=== PATIENT | male | born 1935 | race Caucasian/White ===

== ENCOUNTER 2017-02-18 22:49 | Emergency (ER) | payer BC ==
[~2017-02-18] VITALS: Ht 175.3 cm; Wt 63.5 kg
[2017-02-18 22:49] VITALS: BP_SYST 129
[~2017-02-18 22:49] MED LIST: ASPI81TA2 PO; ATEN-41 PO; DONE10TA44 PO; INSU100V9 SUBCUT; INSU10VI4 SUBCUT; LISI2.5T48 PO; MEMA10TA12 PO; PRAV20TA PO; [UNRECOGNIZED DRUG - OTHER]
[2017-02-18] MEDS ORDERED: NACL 0.9% 1,000 ML IV ONE (23:32)
[2017-02-18 23:56] LABS: BASOPHILS # (AUTO) 0.1 K/uL (0.0-0.2); BASOPHILS % (AUTO) 0.9 % (0.0-2.0); EOSINOPHILS # (AUTO) 0.1 K/uL (0.0-0.4); EOSINOPHILS % (AUTO) 0.5 % (0.0-4.0); HEMATOCRIT 41.8 % (36-54); HEMOGLOBIN 14.1 g/dL (14.0-18.0); LYMPHOCYTES # (AUTO) 0.7 K/uL (1.0-5.5); MEAN CORPUSCULAR HEMOGLOBIN 31 pg (27-31); MEAN CORPUSCULAR HGB CONC 34 % (32-36); MEAN CORPUSCULAR VOLUME 91 fL (79.0-98.0); MONOCYTES # (AUTO) 0.7 K/uL (0.0-1.0); MONOCYTES % (AUTO) 5.5 % (1.7-9.3); NEUTROPHILS # (AUTO) 10.4 K/uL (1.8-7.7); NEUTROPHILS % (AUTO) 87.1 % (40.0-70.0); PLATELET COUNT (AUTO) 168 K/uL (130-430); RED CELL DISTRIBUTION WIDTH 12.6 % (9.0-15.0)
[2017-02-19 00:08] LABS: INR 1.1 (0.80-1.20); PROTHROMBIN TIME 11.4 SECS (9.5-12.5)
[2017-02-19 00:09] LABS: ANION GAP 8 (5-15); CALCIUM 8.9 mg/dL (8.4-11.0); CHLORIDE 107 mmol/L (98-107); CREATININE 1.12 mg/dL (0.55-1.30); GLUCOSE 97 mg/dL (70-99); POTASSIUM 3.4 mmol/L (3.5-5.1); SODIUM SERUM 144 mmol/L (136-145); UREA NITROGEN, BLOOD 18 mg/dL (8-21)
[2017-02-19 00:14] LABS: ALANINE AMINOTRANSFERASE 13 U/L (12-78); ALBUMIN 3.2 g/dL (3.4-4.8); ASPARTATE AMINOTRANSFERASE 5 U/L (10-37); TOTAL BILIRUBIN 0.4 mg/dL (0.0-1.0); TOTAL PROTEIN, SERUM 6.7 g/dL (6.4-8.3)
[2017-02-19 01:07] LABS: BILIRUBIN,URINE NEGATIVE (NEGATIVE); BLOOD, URINE NEGATIVE (NEGATIVE); CLARITY/URINE CLEAR (CLEAR); COLOR,URINE YELLOW (YELLOW); GLUCOSE,URINE NEGATIVE (NEGATIVE); KETONES,URINE NEGATIVE (NEGATIVE); LEUKOCYTE ESTERASE ,URINE NEGATIVE (NEGATIVE); NITRITE, URINE NEGATIVE (NEGATIVE); PH,URINE 5.5 (5.0-8.0); PROTEIN URINE NEGATIVE (NEGATIVE); UROBILINOGEN,URINE 0.2 (0.2-1.0)
[2017-02-19 03:06] VITALS: BP_SYST 144
== END 2017-02-19 03:06 | disposition home or self-care (01) ==
LOC: SED 22:49
DX: E11.649 Type 2 diabetes mellitus with hypoglycemia without coma (principal); F03.90 Unspecified dementia, unspecified severity, without behavioral disturbance, psychotic disturbance, mood disturbance, and anxiety; Z79.84 Long term (current) use of oral hypoglycemic drugs
CPT/HCPCS: 36415; 70450; 80053; 81003; 82962; 85025; 85610; 85730; 96360; 96361; 99285; J7030

== ENCOUNTER 2017-03-29 20:13 | Emergency (ER) | payer BC ==
[~2017-03-29] VITALS: Ht 175.3 cm; Wt 68.0 kg
[2017-03-29 20:25] VITALS: BP_SYST 148
[2017-03-29] MEDS ORDERED: NACL 0.9% 1,000 ML IV ONE (21:00)
[2017-03-29 21:34] LABS: BASOPHILS # (AUTO) 0.1 K/uL (0.0-0.2); BASOPHILS % (AUTO) 1.9 % (0.0-2.0); EOSINOPHILS # (AUTO) 0.5 K/uL (0.0-0.4); EOSINOPHILS % (AUTO) 7.3 % (0.0-4.0); HEMATOCRIT 38.5 % (36-54); LYMPHOCYTES # (AUTO) 1.9 K/uL (1.0-5.5); LYMPHOCYTES % (AUTO) 26.5 % (20.5-51.5); MEAN CORPUSCULAR HEMOGLOBIN 31 pg (27-31); MEAN CORPUSCULAR HGB CONC 34 % (32-36); MEAN CORPUSCULAR VOLUME 92 fL (79.0-98.0); MONOCYTES # (AUTO) 0.6 K/uL (0.0-1.0); MONOCYTES % (AUTO) 8.1 % (1.7-9.3); NEUTROPHILS # (AUTO) 3.9 K/uL (1.8-7.7); NEUTROPHILS % (AUTO) 56.2 % (40.0-70.0); PLATELET COUNT (AUTO) 143 K/uL (130-430); RED BLOOD CELL COUNT(AUTO) 4.19 MIL/uL (4.2-6.2); RED CELL DISTRIBUTION WIDTH 12.7 % (9.0-15.0)
[2017-03-29 21:50] LABS: ANION GAP 7 (5-15); CALCIUM 8.4 mg/dL (8.4-11.0); CHLORIDE 103 mmol/L (98-107); CREATININE 1.41 mg/dL (0.55-1.30); POTASSIUM 4.4 mmol/L (3.5-5.1); SODIUM SERUM 133 mmol/L (136-145); UREA NITROGEN, BLOOD 27 mg/dL (8-21)
[2017-03-29 21:56] LABS: GLUCOSE 477 mg/dL (70-99)
[2017-03-29 21:59] LABS: ALANINE AMINOTRANSFERASE 19 U/L (12-78); ASPARTATE AMINOTRANSFERASE 13 U/L (10-37); TOTAL BILIRUBIN 0.4 mg/dL (0.0-1.0)
[2017-03-29] MEDS ORDERED: NS 500 ML IV ONE (22:45)
[2017-03-29 23:52] VITALS: BP_SYST 143
== END 2017-03-29 23:52 | disposition home or self-care (01) ==
LOC: SED 20:13
DX: E11.65 Type 2 diabetes mellitus with hyperglycemia (principal); F03.90 Unspecified dementia, unspecified severity, without behavioral disturbance, psychotic disturbance, mood disturbance, and anxiety; I10 Essential (primary) hypertension; Z91.14 Patient's other noncompliance with medication regimen; Z79.4 Long term (current) use of insulin
CPT/HCPCS: 36415; 80053; 82962; 85025; 96360; 99284; J7030; J7040

== ENCOUNTER 2017-12-16 19:43 | Emergency (ER) | payer BC ==
[~2017-12-16] VITALS: Ht 172.7 cm; Wt 63.5 kg
[~2017-12-16 19:43] MED LIST changes: +CYAN100067 PO; +HYDR12.55 PO; -INSU10VI4 SUBCUT; -LISI2.5T48 PO; +NPH,100V SUBCUT; +OSEL75CA PO; +VITD2000 PO; -[UNRECOGNIZED DRUG - OTHER]
[2017-12-16 19:45] VITALS: BP_SYST 163
--- NOTE | 2017-12-16 19:45 | NUR ---
Patient to ER via triage for evaluation of being given wrong type of insulin. Patient to bed 6 to await MD evaluation.
--- NOTE | 2017-12-16 19:50 | NUR ---
Patient to ER via triage for evaluation of patient being given wrong type of insulin. Patient received 14 units of regular insulin, instead of 14 units of Lantus. Patient is awake, alert and oriented in no acute distress, vital signs stable, respirations even and unlabored, skin warm and dry to touch. Patient denies pain/sob at present. Patient's bedside glucose was 156, patient given container of OJ while waiting for MD evaluation, will continue to observe and assess.
[2017-12-16 20:08] LABS: EOSINOPHILS # (AUTO) 0.5 K/uL (0.0-0.4); EOSINOPHILS % (AUTO) 6.2 % (0.0-4.0); HEMATOCRIT 40.9 % (36-54); HEMOGLOBIN 13.5 g/dL (14.0-18.0); LYMPHOCYTES # (AUTO) 1.9 K/uL (1.0-5.5); LYMPHOCYTES % (AUTO) 26.3 % (20.5-51.5); MEAN CORPUSCULAR HEMOGLOBIN 31 pg (27-31); MEAN CORPUSCULAR HGB CONC 33 % (32-36); MEAN CORPUSCULAR VOLUME 93 fL (79.0-98.0); MONOCYTES # (AUTO) 0.6 K/uL (0.0-1.0); MONOCYTES % (AUTO) 8.1 % (1.7-9.3); PLATELET COUNT (AUTO) 175 K/uL (130-430); RED BLOOD CELL COUNT(AUTO) 4.39 MIL/uL (4.2-6.2); RED CELL DISTRIBUTION WIDTH 13.5 % (9.0-15.0); WHITE BLOOD COUNT (AUTO) 7.3 K/uL (4.8-10.8)
[2017-12-16 20:10] LABS: BASOPHILS % (AUTO) 0.5 % (0.0-2.0); NEUTROPHILS # (AUTO) 4.3 K/uL (1.8-7.7); NEUTROPHILS % (AUTO) 58.9 % (40.0-70.0)
--- NOTE | 2017-12-16 20:20 | NUR ---
Dr Jett at bedside to evaluate patient.
[2017-12-16 20:27] LABS: ALANINE AMINOTRANSFERASE 18 U/L (12-78); ALBUMIN 3.2 g/dL (3.4-4.8); ANION GAP 4 (5-15); ASPARTATE AMINOTRANSFERASE 13 U/L (10-37); CALCIUM 8.4 mg/dL (8.4-11.0); CHLORIDE 107 mmol/L (98-107); CREATININE 1.05 mg/dL (0.55-1.30); GLUCOSE 164 mg/dL (70-99); POTASSIUM 4.2 mmol/L (3.5-5.1); SODIUM SERUM 139 mmol/L (136-145); TOTAL BILIRUBIN 0.4 mg/dL (0.0-1.0); UREA NITROGEN, BLOOD 21 mg/dL (8-21)
--- NOTE | 2017-12-16 20:50 | NUR ---
Patient given written and verbal discharge instructions and verbalizes understanding. ER MD discussed with patient the results and treatment provided. Patient in stable condition. ID arm band removed. No RX given. Patient educated on pain management and to follow up with PMD. Pain Scale 0. Opportunity for questions provided and answered. Medication side effect fact sheet provided. Patient left ER ambulating without difficulty via walker with at his side. Patient in no acute distress, no questions related to aftercare.
[2017-12-16 20:56] VITALS: BP_SYST 160
== END 2017-12-16 20:56 | disposition home or self-care (01) ==
LOC: SED 19:43
DX: T38.3X1A Poisoning by insulin and oral hypoglycemic [antidiabetic] drugs, accidental (unintentional), initial encounter (principal); G30.9 Alzheimer's disease, unspecified; F02.80 Dementia in other diseases classified elsewhere, unspecified severity, without behavioral disturbance, psychotic disturbance, mood disturbance, and anxiety; I10 Essential (primary) hypertension; E11.9 Type 2 diabetes mellitus without complications; Z79.4 Long term (current) use of insulin; Z79.899 Other long term (current) drug therapy; Z98.52 Vasectomy status; Y92.89 Other specified places as the place of occurrence of the external cause
CPT/HCPCS: 36415; 80053; 85025; 93005; 99285

== ENCOUNTER 2018-06-29 01:37 | Inpatient (IN) | payer BC ==
--- NOTE | 2018-06-28 06:22 | NUR ---
CALLED BACK ; DR MENDEZ CALLED BACK , INFORMED MD THAT PTS 2 ND LACTIC ACID WENT UP TO 3.6 IT WAS 2.4 AT FIRST . ASKED FOR LACTIC ACID ORDER , INFORMED MD THAT SINCE THE 2 ND LA WENT UP PER LAST STAFF MEETING WE NEED TO REPEAT 2 SETS OF THE LACTIC ACID AGAIN , MD STATED TO DO PER SEPSIS PROTOCOL , ALSO NOTIFIED MD THAT PT IS VERY AGITATED , GETTING OUT OF BED AND SCREAMING , MD ORDERED TO GIVE HALDOL 2 MG IVP X 1 NOW , CHANGE PT TO TELEMETRY AND KEEP SITTER AT BEDSIDE .WILL ORDER ENTER . Addendum: 06/29/18 at 0751 by Esther Robins RN CORRECTION : WRONG DATE
[~2018-06-29] VITALS: Ht 175.3 cm; Wt 72.4 kg
[2018-06-29] VITALS (8 sets, daily range): BP systolic 133–187
[~2018-06-29 01:37] MED LIST changes: +ASPI-1155 PO; -ASPI81TA2 PO; +CYAN100010 PO; -CYAN100067 PO; +MEMA10TA PO; -MEMA10TA12 PO
--- NOTE | 2018-06-29 01:40 | NUR ---
Placed in room 1. Placed on laboratory monitor, blood pressure machine and pulse oximeter. To gown for exam. Side rails up. Report given to LAWRENCE Ramos.
--- NOTE | 2018-06-29 01:50 | NUR ---
Pt brought in by ambulance C/O fever x 2 days. Pt states he "hasn't been feeling to good" and called 911 at home. Pt denies any chest pain, shortness of breath, ALOC, nausea or vomiting at this time. Upon arrival pt's temperature was 100.4 and blood sugar 413. Pt is resting in bed, will continue to monitor.
--- NOTE | 2018-06-29 01:55 | NUR ---
ER Dr. Ann at bedside examining patient.
[2018-06-29] MEDS ORDERED: NACL 0.9% 1,000 ML IV ONE ×2 (02:00→03:15)
[2018-06-29] MEDS ORDERED: ACETAMINOPHEN 325 MG TABLET PO ONE (02:00)
[2018-06-29 02:09] LABS: BASOPHILS # (AUTO) 0.4 K/uL (0.0-0.2); BASOPHILS % (AUTO) 2.3 % (0.0-2.0); EOSINOPHILS % (AUTO) 0.2 % (0.0-4.0); HEMATOCRIT 44.9 % (36-54); HEMOGLOBIN 14.3 g/dL (14.0-18.0); LYMPHOCYTES # (AUTO) 0.6 K/uL (1.0-5.5); LYMPHOCYTES % (AUTO) 3.7 % (20.5-51.5); MEAN CORPUSCULAR HEMOGLOBIN 30 pg (27-31); MEAN CORPUSCULAR HGB CONC 32 % (32-36); MEAN CORPUSCULAR VOLUME 94 fL (79.0-98.0); MONOCYTES # (AUTO) 0.4 K/uL (0.0-1.0); MONOCYTES % (AUTO) 2.7 % (1.7-9.3); NEUTROPHILS # (AUTO) 14.2 K/uL (1.8-7.7); NEUTROPHILS % (AUTO) 91.1 % (40.0-70.0); PLATELET COUNT (AUTO) 189 K/uL (130-430); RED BLOOD CELL COUNT(AUTO) 4.79 MIL/uL (4.2-6.2); RED CELL DISTRIBUTION WIDTH 12.8 % (9.0-15.0); WHITE BLOOD COUNT (AUTO) 15.6 K/uL (4.8-10.8)
--- NOTE | 2018-06-29 02:10 | NUR ---
Dr. Ann at bedside speaking to daughter.
--- NOTE | 2018-06-29 02:13 | NUR ---
[facility]
--- NOTE | 2018-06-29 02:28 | NUR ---
Medication reconciliation NOT completed. Pt's daughter states she does not have a list of her fathers medication but can get it in the morning. Pt can not recall the medications he currently takes.
[2018-06-29] MEDS ORDERED: cefTRIAXone 1 GM IVPB PREMIX 50 ML IV ONE (02:30)
[2018-06-29 02:32] LABS: ALANINE AMINOTRANSFERASE 15 U/L (12-78); ALBUMIN 2.7 g/dL (3.4-4.8); ANION GAP 9 (5-15); ASPARTATE AMINOTRANSFERASE 14 U/L (10-37); CALCIUM 8.3 mg/dL (8.4-11.0); CHLORIDE 103 mmol/L (98-107); CREATININE 1.12 mg/dL (0.55-1.30); POTASSIUM 4.6 mmol/L (3.5-5.1); SODIUM SERUM 136 mmol/L (136-145); TOTAL BILIRUBIN 0.6 mg/dL (0.0-1.0); UREA NITROGEN, BLOOD 13 mg/dL (8-21)
[2018-06-29 02:33] LABS: GLUCOSE 418 mg/dL (70-99)
[2018-06-29] MEDS ORDERED: INSULIN REGULAR, HUMAN 10 UNITS/0.1 ML INJ IVP ONE (02:45)
--- NOTE | 2018-06-29 02:48 | NUR ---
Pt is resting quietly in bed, no acute distress noted at this time. Will continue to monitor.
--- NOTE | 2018-06-29 02:53 | NUR ---
Patient meets Severe sepsis risk. Dr. Ann notified. Orders received for Blood cultures x 2, lactic acid x 2 and Rocephin 1 gm IVPB. Sepsis protocol initiated. Addendum: 06/29/18 at 0258 by [email or web address] Vancomycin 1 gm ivpb ordered as well.
[2018-06-29] MEDS ORDERED: VANCOMYCIN HCL 1,000 MG in NS 250 ML IV ONE (03:00)
[2018-06-29] MEDS ORDERED: VANCOMYCIN HCL 1000 MG/VIAL IV ONE (03:08)
--- NOTE | 2018-06-29 03:15 | NUR ---
Straight Cath was attempted for urine specimen collection but was unsucessful.
[2018-06-29] MEDS ORDERED: LIDOCAINE JELLY 5 ML TUBE MM ONE (03:30)
--- NOTE | 2018-06-29 03:30 | NUR ---
Pt is resting in bed, no acute distress noted at this time.
--- NOTE | 2018-06-29 03:40 | NUR ---
# 14 FR In and Out coude catheter with use of sterile technique. Immediate return of 100 ml clear yellow urine noted. Urine sample collected and sent to lab. Pt tolerated procedure well. Patient unable to toilet self.
[2018-06-29 04:05] LABS: BILIRUBIN,URINE NEGATIVE (NEGATIVE); BLOOD, URINE NEGATIVE (NEGATIVE); CLARITY/URINE CLEAR (CLEAR); COLOR,URINE YELLOW (YELLOW); GLUCOSE,URINE 3+ (NEGATIVE); KETONES,URINE TRACE (NEGATIVE); LEUKOCYTE ESTERASE ,URINE NEGATIVE (NEGATIVE); NITRITE, URINE POSITIVE (NEGATIVE); PROTEIN URINE NEGATIVE (NEGATIVE); UROBILINOGEN,URINE 0.2 (0.2-1.0)
--- NOTE | 2018-06-29 04:29 | NUR ---
Pt's daughter Makayla left contact information for any updates or change of condition Makayla Chen [phone]
--- NOTE | 2018-06-29 04:32 | NUR ---
Patient will be admitted to care of Dr. Magana. Admitted to Med Surg unit. Will go to room 112 B. Belongings list completed. Summary report printed. Report will be given at bedside.
--- NOTE | 2018-06-29 04:32 | NUR ---
Transfer to Med Surg. Licensed nurse present. IV present no signs or symptoms of infiltration.
--- NOTE | 2018-06-29 04:35 | NUR ---
ADMISSION: The patient, PEÑA GUZMAN, 83 y/o, M admitted by WESTLEY MENDEZ MD, WITH THE DIAGNOSIS OF SEPSIS TO ROOM 112 B ,was given written information regarding hospital policies, unit procedures and contact persons.
[2018-06-29 04:40] LABS: BACTERIA,URINE MANY /HPF (None Seen); RBC,URINE 0-3 /HPF (0-3)
--- NOTE | 2018-06-29 04:40 | NUR ---
INITIAL NOTES: PT IS AWAKE , ALERT AND NOTICED GETTING CONFUSED OR FORGETFUL (ASKING QUESTIONS REPEATEDLY), ALSO SAYING " I WANT TO GO HOME " . PT HAS IV TO THE LEFT FA 20 G, IV FLUID BOLUS STARTED IN ER AND VANCOMYCIN IS INFUSING WELL . NO S/S OF INFILTRATION NOTED , ASSESSMENT DONE ; NOTICED THAT 2 ND LACTIC ACID IS HIGHER THAN THE 1 ST ONE . PER ER REPORT MD IS AWARE . PT RECEIVED 2 L BOLUS IN ER . ALSO RECEIVED VANCOMYCIN AND ROCEPHIN IN ER , PTS VITALS ARE STABLE , EXCEPT HR IS ABOVE 90 ; BED IN LOW AND LOCK POSIITON , CALL ESCOTO IN REACH , BED ALARM IS ON ; WILL CONTINUE TO MONITOR PT .ALSO PER PIPING ENGINEER MD WANTS TO ADMIT THE PT IN MED SURG NOT TELE .
--- NOTE | 2018-06-29 04:56 | NUR ---
Note ernesto in EDM - 06/29/18 at 0639 by [email or web address] Patient will be admitted to care of Dr. Magana. Admitted to med surge unit. Will go to room 112B. Belongings list completed. Summary report printed. Report will be given at bedside.
[2018-06-29] MEDS: NACL 0.9% 1,000 ML IV SCH ×2 (05:27→17:15)
--- NOTE | 2018-06-29 05:30 | NUR ---
RN NOTES: PT IS AWAKE , CONTINUOUSLY SAYING THAT HE WANTS TO GO HOME NOW . PT IS INCONTINENT WITH URINE , PT CLEANED , LINEN AND GOWN CHANGED ; VANCOMYCIN IS STILL INFUSING ;WILL CONTINUE TO MONITOR PT . Addendum: 06/29/18 at 0742 by Esther Robins RN PICTURES OF THE LEFT KNEE AND LEFT HIP TAKEN
--- NOTE | 2018-06-29 06:00 | NUR ---
FAMILY CALLED: LAUREN CALLED AND INFORMED THAT PT IS VERY AGITATED , GETTING OUT OF BED AND SHOUTING AND SAYING THAT HE WANTS TO GO HOME NOW . SECURITY CALLED , HE IS AT BEDSIDE .
--- NOTE | 2018-06-29 06:15 | NUR ---
PAGED: DR MENEDZ PAGED TO GET LACTIC ACID ORDER AND INFORM HIM THAT PT IS VERY CONFUSED .
--- NOTE | 2018-06-29 06:16 | NUR ---
ATTENDING MD DR MENDEZ WAS CALLED RE: REPORT A HIGHER LACTIC ACID LEVEL AND ASK FOR ANOTHER ORDER OF THE SAME TEST. SPOKE TO RAMÓN.
--- NOTE | 2018-06-29 06:22 | NUR ---
CALLED BACK ; DR MENDEZ CALLED BACK , INFORMED MD THAT PTS 2 ND LACTIC ACID WENT UP TO 3.6 IT WAS 2.4 AT FIRST . ASKED FOR LACTIC ACID ORDER , INFORMED MD THAT SINCE THE 2 ND LA WENT UP PER LAST STAFF MEETING WE NEED TO REPEAT 2 SETS OF THE LACTIC ACID AGAIN , MD STATED TO DO PER SEPSIS PROTOCOL , ALSO NOTIFIED MD THAT PT IS VERY AGITATED , GETTING OUT OF BED AND SCREAMING , MD ORDERED TO GIVE HALDOL 2 MG IVP X 1 NOW , CHANGE PT TO TELEMETRY AND KEEP SITTER AT BEDSIDE .WILL ORDER ENTER .
--- NOTE | 2018-06-29 06:25 | NUR ---
LAB NOTIFIED : LAB NOTIFIED ABOUT THE NEW ORDER FOR REPEATED LACTIC ACID .
[2018-06-29] MEDS ORDERED: HALOPERIDOL LACTATE 5 MG/ML VIAL IVP ONE (06:30)
--- NOTE | 2018-06-29 06:37 | NUR ---
RN NOTES: PLACED PT ON TELEMONITOR . PT IS VERY CONFUSED , AND AGITATED , SECURITY AT BEDSIDE . HALDOL 2 MG GIVEN IV PER DR MENDEZ ORDER . WILL CONTINUE TO MONITOR PT .
[2018-06-29] MEDS: INSULIN REGULAR, HUMAN 100 UNITS/ML, 10 ML VIAL (novoLIN R) SUBCUT PRN ×4 (06:50→20:55)
--- NOTE | 2018-06-29 06:55 | NUR ---
BS: BS 276, 6 UNITS OF INSULIN GIVEN PER ORDER . WILL CONTINUE TO MONITOR .SITTER AT BEDSIDE .
--- NOTE | 2018-06-29 07:10 | NUR ---
CLOSING NOTES: REPORT GIVEN TO RN AT BEDSIDE . PT IS MORE CALM . SITTER AT BEDSIDE .
--- NOTE | 2018-06-29 08:05 | NUR ---
INITIAL ROUNDS Received pt AAOx2, pt confused at times, pt still restless and anxious-sitter at bedside, no s/s resp distress. No c/o pain or discomfort. Plan of care for the day reviewed with pt-pt verbalized his understanding. IVF infusing well to LFA at ordered rate with no s/s infiltration to site. Pain management, disease process, skin and safety discussed-teach back done. Call light within reach.
[2018-06-29] MEDS ORDERED: INSULIN NPH 100 UNITS/ML 10 ML VIAL SUBCUT SCH (09:45)
--- NOTE | 2018-06-29 10:20 | NUR ---
ROUNDS Pt resting quietly in bed with no s/s resp distress, no c/o pain or discomfort. Sitter remains at bedside.
--- NOTE | 2018-06-29 10:54 | NUR ---
Nutrition Update Valentin Scale 16 noted. Pt admitted for sepsis. Diet: [facility] BMI: 23.6 kg/m2 RD to follow per nutrition care standards.
[2018-06-29] MEDS: PIPERACILLIN/TAZO 3.375/DEX-IS 50 ML IV SCH ×4 (11:21→23:50)
--- NOTE | 2018-06-29 12:25 | NUR ---
ROUNDS Pt sitting up in bed with no s/s resp distress, no c/o pain or discomfort. Fingerstick done and Insulin given as ordered-see EMAR. Sitter remains at bedside.
--- NOTE | 2018-06-29 14:10 | NUR ---
ROUNDS Pt resting quietly in bed with no s/s resp distress, no c/o pain or discomfort. No changes, call light within reach. Sitter remains at bedside for safety.
--- NOTE | 2018-06-29 16:20 | NUR ---
ROUNDS Pt resting quietly with no c/o pain or discomfort, afebrile. Sitter at bedside for safety.
--- NOTE | 2018-06-29 18:48 | NUR ---
CLOSING NOTE Pt sitting up in bed with no s/s resp distress, afebrile, no c/o pain or discomfort. Pt less restless and anxious, sitter remains at bedside for safety. Call light within reach.
--- NOTE | 2018-06-29 19:59 | NUR ---
OPENING NOTES Pt and endorsement received from day shift nurse. Pt is awake, alert and lying in bed. Sitter Soledad at bedside. Pt on IVF NS at 100ml/hr infusing well on left forearm G20. No complains of pain at this time. No sign of acute distress noted. Call light with pt, bed alarm on and at its lowest level. Will continue to monitor.
[2018-06-29] MEDS: MEMANTINE HCL 5 MG TABLET PO SCH (20:45)
[2018-06-29] MEDS: SIMVASTATIN 10 MG TABLET PO SCH (20:45)
[2018-06-29] MEDS: DONEPEZIL HCL 5 MG TABLET (ARICEPT) PO SCH (20:46)
[2018-06-29] MEDS ORDERED: PRAVASTATIN SODIUM 20 MG TABLET (PRAVACHOL) PO SCH (21:00)
[2018-06-29] MEDS ORDERED: INSULIN GLARGINE 100 UNITS/ML 10 ML VIAL SUBCUT SCH (21:00)
--- NOTE | 2018-06-29 21:49 | NUR ---
PATIENT REMAINE CALM @COOPERATE SINCE MY SHIFT STARTED AT 1800 HE COMMUNICATE VERY WELL HE TALKED ALOTS ABOUT HIS JOB HOW HE EARNED HIS LEAVING AND HOW MUCH HE ENJOYED PATIENT IS VERY ALERT AND AWARE WHERE HIS AT
--- NOTE | 2018-06-29 23:48 | NUR ---
PATIENT STAYED AWAKE NEVER GO TO SLEEP PATIENT GETTING CONFUSE AND REPEATED ASKING THE SAME GUESTION ALL OVER @ AND OVER HE BECAME AGGRESIVE AND COMBATIVE TRIED TO HIT THE NURSE
--- NOTE | 2018-06-30 00:31 | NUR ---
REFUSED BP MEDICATION Pt states he wants to go home. BP was 187/80. Pt refused to take BP medication, Clonidine 0.1mg despite educating him on about Clonidine to lower his bp. Will try to convince again later.
[2018-06-30 01:46] VITALS: BP_SYST 149
--- NOTE | 2018-06-30 01:46 | NUR ---
BP RECHECKED Pt's BP was rechecked and is 149/75mmHg. Pt is not agitated at this time. No signs of acute distress or SOB noted. No complains of pain or discomfort. Safety precautions in place, sitter JORGE Rowe at bedside and call light with pt. Will continue to monitor.
[2018-06-30] MEDS: NACL 0.9% 1,000 ML IV SCH ×3 (02:08→21:46)
--- NOTE | 2018-06-30 04:00 | NUR ---
RESTING Pt is resting with both eyes closed. With visible chest rise and fall with non-labored breathing noted. No complains at this time and no signs of acute distress noted. Sitter JORGE Rowe at bedside, safety precautions in place and call light with pt. Will continue to monitor.
[2018-06-30] MEDS: PIPERACILLIN/TAZO 3.375/DEX-IS 50 ML IV SCH ×4 (05:15→23:12)
[2018-06-30] MEDS: INSULIN REGULAR, HUMAN 100 UNITS/ML, 10 ML VIAL (novoLIN R) SUBCUT PRN ×4 (06:21→21:01)
--- NOTE | 2018-06-30 06:58 | NUR ---
CLOSING NOTES Pt is resting with both eyes closed. With visible chest rise and fall with non-labored breathing noted. No signs of acute distress noted. All needs attended throughout the shift. Safety precautions maintained and call light with pt. Will endorse to day shift nurse.
--- NOTE | 2018-06-30 07:35 | NUR ---
received endorsement from madhuri zarate. aaox 3. confused at times. will continue to monitor patient status. no agitation noted. respiration is even and unlabored. no oxygen noted. has iv access on the left forearm #20 with IV fluids of Normal Saline at 60cc/hr infusing on well.
--- NOTE | 2018-06-30 08:20 | NUR ---
assist patient for breakfast. able to eat without difficulty. hob elevated.
[2018-06-30 08:22] VITALS: BP_SYST 157
--- NOTE | 2018-06-30 08:33 | NUR ---
dr wolfe here, informed md that bp was 157/101 but bp med ordered above 160. md said he will make adjustments.
--- NOTE | 2018-06-30 09:00 | NUR ---
medication given as ordered clonidine 0.1 mg tablet and namenda given as ordered. bp 157/100.
[2018-06-30] MEDS: MEMANTINE HCL 5 MG TABLET PO SCH ×2 (09:26→20:46)
[2018-06-30] MEDS: cloNIDine HCL 0.1 MG TABLET PO PRN (09:27)
--- NOTE | 2018-06-30 09:30 | NUR ---
ABLE TO TAKE MEDICATION NO DIFFICULTY. PATIENT IS QUITE. NO AGITATION NOTED. RESTING AT THIS TIME.
[2018-06-30] MEDS ORDERED: OSELTAMIVIR PHOSPHATE 75 MG CAPSULE PO ONE (09:45)
[2018-06-30] MEDS ORDERED: ATENOLOL 25 MG TABLET(TENORMIN) PO ONE (09:45)
[2018-06-30] MEDS ORDERED: ASPIRIN 81 MG TAB.CHEW PO ONE (09:45)
[2018-06-30] MEDS ORDERED: CHOLECALCIFEROL (VITAMIN D3) 2,000 UNIT TABLET PO ONE (09:45)
[2018-06-30] MEDS ORDERED: CYANOCOBALAMIN 1000 mCg TABLET PO ONE (09:45)
--- NOTE | 2018-06-30 10:30 | NUR ---
bp is 140/74. no pain noted
--- NOTE | 2018-06-30 10:41 | NUR ---
PT'S DAUGHTER NEETA UPDATED WITH PT'S STATUS.
[2018-06-30 12:00] VITALS: BP_SYST 130
[2018-06-30 12:25] VITALS: BP_SYST 118
--- NOTE | 2018-06-30 15:00 | NUR ---
other medication ordered given at this time. made comfortable
[2018-06-30 16:54] VITALS: BP_SYST 119
--- NOTE | 2018-06-30 17:08 | NUR ---
patient is stable. quite no agitation noted. continue to monitor patients status
--- NOTE | 2018-06-30 18:10 | NUR ---
latest bs is 322 mg/dl. coverage given at this time. at the bedside.
--- NOTE | 2018-06-30 18:46 | NUR ---
at the bedside. assisting to eat at the bedside. monitor patients status
--- NOTE | 2018-06-30 19:25 | NUR ---
CHANGE OF SHIFT: pt. awake, alert but disoriented, calm watching tv with at bedside. denies any discomfort at this time, side rails up, bed alarm turn on. IVF infusing on left forearm. call light within reach, pt. near nurses station.in no acute distress.
[2018-06-30 20:00] VITALS: BP_SYST 147
[2018-06-30] MEDS: SIMVASTATIN 10 MG TABLET PO SCH (20:46)
[2018-06-30] MEDS: DONEPEZIL HCL 5 MG TABLET (ARICEPT) PO SCH (20:46)
--- NOTE | 2018-06-30 21:00 | NUR ---
NOTES asked despatch clerk to call Dr. Dempsey to verify order of Levemir.
[2018-06-30] MEDS: OSELTAMIVIR PHOSPHATE 75 MG CAPSULE PO SCH (21:01)
--- NOTE | 2018-06-30 21:30 | NUR ---
NOTES: Dr. Dempsey Called back and change dose of Levemir.
--- NOTE | 2018-06-30 22:01 | NUR ---
NOTES: pt. incontinent of urine, asked NEWS LIBRARIAN to change , kept warm and dry.
--- NOTE | 2018-06-30 23:30 | NUR ---
NOTES: offered something to eat but refused. dozing on and off.
--- NOTE | 2018-06-30 23:31 | NUR ---
NOTES: pt. been dozing off, remain at bedside waiting for her ride. due Levemir given.
--- NOTE | 2018-07-01 00:30 | NUR ---
NOTES; pt. sleeping when checked. risk for falls. bed alarm on, side rails up.
--- NOTE | 2018-07-01 03:17 | NUR ---
NOTES: pt. sleeping when made rounds.condition observed.
[2018-07-01 03:33] VITALS: BP_SYST 172
[2018-07-01] MEDS: cloNIDine HCL 0.1 MG TABLET PO PRN ×2 (03:51→08:33)
[2018-07-01] MEDS: PIPERACILLIN/TAZO 3.375/DEX-IS 50 ML IV SCH ×2 (05:20→11:33)
--- NOTE | 2018-07-01 06:00 | NUR ---
NOTES: pt. sleeping, no complaints noted.
--- NOTE | 2018-07-01 06:45 | NUR ---
NOTES: pt. awakened to check BS 44, pt. awake and responsive. gave apple juice .
--- NOTE | 2018-07-01 07:00 | NUR ---
NOTES: hypoglycemia protocol , gave D 50 IVP, will recheck BS in 15 min. IVF patent.
[2018-07-01] MEDS ORDERED: DEXTROSE 50% JECT 50 ML DISP.SYRIN ONE (07:04)
--- NOTE | 2018-07-01 07:18 | NUR ---
NOTES: rechecked blood sugar 178. pt. resting and awake.
--- NOTE | 2018-07-01 07:52 | NUR ---
endorsed pt. to incoming shift with nurse Rolon.
[2018-07-01 08:00] VITALS: BP_SYST 163
--- NOTE | 2018-07-01 08:00 | NUR ---
RN OPENING NOTE PATIENT RESTING ON BED, ALERT ORIENTED X3. PATIENT WAS ASSESSED, VITAL SIGNS SHOW BLOOD PRESSURE OF 163/81 PATIENT WILL BE GETTING HIS BLOOD PRESSURE MEDICATION SOON, PATIENT IVF IS RUNNING PRESCRIBED, BED AT LOW POSITION AND CALL LIGHT WITHIN REACH, WILL CONTINUE TO MONITOR.
[2018-07-01 08:01] LABS: BASOPHILS % (AUTO) 0.5 % (0.0-2.0); EOSINOPHILS # (AUTO) 0.6 K/uL (0.0-0.4); EOSINOPHILS % (AUTO) 7.1 % (0.0-4.0); HEMATOCRIT 37.1 % (36-54); LYMPHOCYTES # (AUTO) 1.7 K/uL (1.0-5.5); LYMPHOCYTES % (AUTO) 19.3 % (20.5-51.5); MEAN CORPUSCULAR HEMOGLOBIN 32 pg (27-31); MEAN CORPUSCULAR HGB CONC 35 % (32-36); MEAN CORPUSCULAR VOLUME 93 fL (79.0-98.0); MONOCYTES # (AUTO) 0.5 K/uL (0.0-1.0); MONOCYTES % (AUTO) 6.3 % (1.7-9.3); NEUTROPHILS # (AUTO) 5.8 K/uL (1.8-7.7); PLATELET COUNT (AUTO) 127 K/uL (130-430); RED BLOOD CELL COUNT(AUTO) 4.01 MIL/uL (4.2-6.2); RED CELL DISTRIBUTION WIDTH 12.7 % (9.0-15.0); WHITE BLOOD COUNT (AUTO) 8.6 K/uL (4.8-10.8)
[2018-07-01] MEDS: NACL 0.9% 1,000 ML IV SCH (08:16)
[2018-07-01 08:26] LABS: ALANINE AMINOTRANSFERASE 15 U/L (12-78); ALBUMIN 2.3 g/dL (3.4-4.8); ANION GAP 5 (5-15); ASPARTATE AMINOTRANSFERASE 15 U/L (10-37); CALCIUM 8.6 mg/dL (8.4-11.0); CHLORIDE 112 mmol/L (98-107); CREATININE 0.92 mg/dL (0.55-1.30); POTASSIUM 3.9 mmol/L (3.5-5.1); SODIUM SERUM 143 mmol/L (136-145); TOTAL BILIRUBIN 0.6 mg/dL (0.0-1.0); UREA NITROGEN, BLOOD 11 mg/dL (8-21)
[2018-07-01] MEDS: MEMANTINE HCL 5 MG TABLET PO SCH (08:30)
[2018-07-01] MEDS: OSELTAMIVIR PHOSPHATE 75 MG CAPSULE PO SCH (08:32)
[2018-07-01 08:40] LABS: GLUCOSE 41 mg/dL (70-99)
--- NOTE | 2018-07-01 08:40 | NUR ---
RN NOTE LAB CALLED A CRITICAL VALUE TO BLOOD SUGAR OF 40 MG/DL MEASURED AT 0500. THAT THE PREVIOUS SHIFT TOLD ME THEY ALREADY CALLED DR. CORTES AND INFORMED HIM AND PATIENT GOT D50 IV. PATIENT'S BLOOD SUGAR WAS MEASURED RIGHT NOW AND CAME UP TO BE 180 MG/DL. WILL NOT CALL THE SINCE HE WAS CALLED BEFORE FOR THE SAME RESULT. WILL CONTINUE TO FOLLOW UP.
[2018-07-01] MEDS ORDERED: CHOLECALCIFEROL (VITAMIN D3) 2,000 UNIT TABLET PO SCH (09:00)
[2018-07-01] MEDS ORDERED: ASPIRIN 81 MG TAB.CHEW PO SCH (09:00)
[2018-07-01] MEDS ORDERED: ATENOLOL 25 MG TABLET(TENORMIN) PO SCH (09:00)
[2018-07-01] MEDS ORDERED: CYANOCOBALAMIN 1000 mCg TABLET PO SCH (09:00)
[2018-07-01] MEDS ORDERED: LEVO250T2 PO (10:20)
[2018-07-01] MEDS ORDERED: LACT1CAP72 PO (10:21)
--- NOTE | 2018-07-01 10:38 | NUR ---
[facility] PLAN/SNF SNF AVAILABILITY: [facility] - ROOM [address] [place] [address] PHONE: [phone] (NURSE TO CALL FOR REPORT) TRANSPORTATION: [facility] WILL TRANSFORMER BUILDER AT 2PM PHONE: [phone] LAUREN MADE AWARE OF TRANSFER ARRANGEMENT AND NO ISSUES. SHAMA CORDON, HCP DIRECT SUPPORT [facility] [phone]
--- NOTE | 2018-07-01 12:00 | NUR ---
RN NOTE PATIENT IS RESTING ON BED, PATIENT BLOOD SUGAR WAS MEASURED TO BE 280 MG/DL. PATIENT GOT 6 UNITS OF REGULAR INSULIN PER THE SLIDING SCALE. PATIENT DENIES PAIN OR DISCOMFORT, PATIENT WILL BE TRANSFERED TO [facility], PATIENT WAS TOLD AND HIS LAUREN WAS INFORMED. SHE AGREED TO THE TRANSFER. A REPORT WAS GIVEN TO LILLIANA TORREZ AT [facility]. AMBULANCE WILL BE COMING TO PICK THE PATIENT UP AT 1400.
[2018-07-01 12:02] VITALS: BP_SYST 158
[2018-07-01] MEDS: INSULIN REGULAR, HUMAN 100 UNITS/ML, 10 ML VIAL (novoLIN R) SUBCUT PRN (12:07)
[2018-07-01 12:15] LABS: NEUTROPHILS % (AUTO) 66.8 % (40.0-70.0)
[2018-07-01 12:48] VITALS: BP_SYST 158
--- NOTE | 2018-07-01 13:33 | NUR ---
HCP OIL TESTER WEEKEND SOLAR SYSTEM INSTALLER, NI CORDON WAS CALLED RE: INFORM THAT DAUGHTER DOES NOT LIKE [facility]. LEFT CM PHYSICIAN COMPENSATION ANALYST A VOICE MESSAGE
--- NOTE | 2018-07-01 13:35 | NUR ---
HCP SHAMA CORRAL CALLED BACK TO INFORM THAT SHE TALKED TO THE DAUGHTER, ASHLEE WHO AGREED TO [facility].
--- NOTE | 2018-07-01 14:30 | NUR ---
RN CLOSING NOTE PATIENT WILL BE TRANSFERED TO [facility] WITH A BLS AMBULANCE, PATIENT SIGNED HIS AGREEMENT FOR TRANSPORTATION, LAUREN AGREED. PATIENT SALINE LOCK WAS REMOVED. MEDICATIONS AND OTHER DISCHARGE PAPERS WERE SHOWN TO THE PATIENT AND THE EMT. REPORT WAS GIVEN TO THE RECEIVING NURSE IN [facility], AND i HERE BY SIGN OFF PATIENTS' CARE.
--- NOTE | 2018-07-02 10:30 | NUR ---
Discharge Planning: DORA received a message from patients daughter Marilyn ([phone]) stating she would like her father transferred to [facility], he has been there in the past. DCP spoke to Marilyn and patient was transferred to [facility], Marilyn was happy with choice she visiting and dad doing great.
== END 2018-07-01 14:35 | DRG 871 ==
LOC: SED 01:37 → SMU 04:10 → STU 06:00 → SMU 06:30 → STU 17:16 → SIC 06-30 02:47 → STU 06-30 03:54
PROVIDERS: ADMIT Internal Medicine Hospice and Palliative Medicine; ATTEND Internal Medicine Hospice and Palliative Medicine
DX: A41.9 Sepsis, unspecified organism (principal); G93.41 Metabolic encephalopathy; N39.0 Urinary tract infection, site not specified; E44.1 Mild protein-calorie malnutrition; E11.649 Type 2 diabetes mellitus with hypoglycemia without coma; R45.1 Restlessness and agitation; M19.011 Primary osteoarthritis, right shoulder; E78.5 Hyperlipidemia, unspecified; G30.9 Alzheimer's disease, unspecified; F02.80 Dementia in other diseases classified elsewhere, unspecified severity, without behavioral disturbance, psychotic disturbance, mood disturbance, and anxiety; M19.90 Unspecified osteoarthritis, unspecified site; I10 Essential (primary) hypertension; Z85.46 Personal history of malignant neoplasm of prostate; Z90.79 Acquired absence of other genital organ(s); Z79.899 Other long term (current) drug therapy; Z79.82 Long term (current) use of aspirin
CPT/HCPCS: 36415; 71045; 80053; 81000-TC; 82962; 83036; 83605; 84484; 85025; 86710; 87040-TC; 87086; 96361; 96365; 96366; 96367; 97110-GP; 99285; G0378; G9035; J0696; J1630; J1815; J2543; J3370; J7030

== ENCOUNTER 2018-09-30 14:10 | Inpatient (IN) | payer BC ==
[~2018-09-30] VITALS: Ht 175.3 cm; Wt 72.1 kg
[~2018-09-30 14:10] MED LIST changes: +LACT1CAP72 PO; +LEVO250T2 PO
[2018-09-30 14:15] VITALS: BP_SYST 120
[2018-09-30] MEDS ORDERED: ONDANSETRON HCL 4 MG/2 ML VIAL IVP ONE (14:30)
[2018-09-30] MEDS ORDERED: ASPIRIN 81 MG TAB.CHEW PO ONE (14:30)
[2018-09-30 15:28] LABS: ANION GAP 6 (5-15); CALCIUM 8.8 mg/dL (8.4-11.0); CHLORIDE 106 mmol/L (98-107); CREATININE 0.94 mg/dL (0.55-1.30); GLUCOSE 91 mg/dL (70-99); HEMATOCRIT 43.2 % (36-54); HEMOGLOBIN 14.2 g/dL (14.0-18.0); MEAN CORPUSCULAR HEMOGLOBIN 31 pg (27-31); MEAN CORPUSCULAR VOLUME 95 fL (79.0-98.0); POTASSIUM 3.7 mmol/L (3.5-5.1); RED BLOOD CELL COUNT(AUTO) 4.54 MIL/uL (4.2-6.2); SODIUM SERUM 137 mmol/L (136-145); UREA NITROGEN, BLOOD 14 mg/dL (8-21); WHITE BLOOD COUNT (AUTO) 8.2 K/uL (4.8-10.8)
[2018-09-30 15:29] LABS: BASOPHILS % (AUTO) 0.4 % (0.0-2.0); EOSINOPHILS # (AUTO) 0.4 K/uL (0.0-0.4); EOSINOPHILS % (AUTO) 4.9 % (0.0-4.0); LYMPHOCYTES # (AUTO) 1.9 K/uL (1.0-5.5); LYMPHOCYTES % (AUTO) 23.1 % (20.5-51.5); MEAN CORPUSCULAR HGB CONC 33 % (32-36); MONOCYTES # (AUTO) 0.6 K/uL (0.0-1.0); MONOCYTES % (AUTO) 7.6 % (1.7-9.3); NEUTROPHILS # (AUTO) 5.3 K/uL (1.8-7.7); PLATELET COUNT (AUTO) 188 K/uL (130-430); PROTHROMBIN TIME 10.7 SECS (9.5-12.5); RED CELL DISTRIBUTION WIDTH 13.4 % (9.0-15.0)
[2018-09-30 15:32] LABS: ALANINE AMINOTRANSFERASE 17 U/L (12-78); AMYLASE 60 U/L (0-100); ASPARTATE AMINOTRANSFERASE 16 U/L (10-37); LIPASE 79 U/L (73-393); TOTAL BILIRUBIN 0.5 mg/dL (0.0-1.0)
[2018-09-30 15:34] LABS: ALCOHOL, BLOOD < 3 mg/dL (<10)
[2018-09-30] MEDS ORDERED: INSU100V9 SQ (16:14)
[2018-09-30] MEDS ORDERED: INSU100V7 SQ (16:14)
[2018-09-30] MEDS ORDERED: PRAV20TA PO (16:14)
[2018-09-30] MEDS ORDERED: ATEN-41 PO (16:14)
[2018-09-30] MEDS ORDERED: ASPI-1077 PO (16:14)
[2018-09-30] MEDS ORDERED: DONE10TA44 PO (16:14)
[2018-09-30] MEDS ORDERED: MEMA10TA PO (16:14)
[2018-09-30] MEDS ORDERED: DIPHENHYDRAMINE INJ 50 MG/ML VIAL IVP ONE (16:45)
[2018-09-30] MEDS ORDERED: ENOXAPARIN SODIUM 40 MG/0.4 ML SYRINGE SUBCUT ONE (17:00)
[2018-09-30 17:39] VITALS: BP_SYST 134
[2018-09-30 17:59] LABS: BILIRUBIN,URINE NEGATIVE (NEGATIVE); BLOOD, URINE NEGATIVE (NEGATIVE); CLARITY/URINE CLEAR (CLEAR); COLOR,URINE YELLOW (YELLOW); GLUCOSE,URINE NEGATIVE (NEGATIVE); KETONES,URINE TRACE (NEGATIVE); LEUKOCYTE ESTERASE ,URINE NEGATIVE (NEGATIVE); NITRITE, URINE NEGATIVE (NEGATIVE); PH,URINE 5.5 (5.0-8.0); PROTEIN URINE NEGATIVE (NEGATIVE); UROBILINOGEN,URINE 0.2 (0.2-1.0)
[2018-09-30 18:12] LABS: BARBITURATE, URINE NEGATIVE (NEG <=200); BENZODIAZEPINE, URINE NEGATIVE (NEG <=150); CANNABINOID, URINE NEGATIVE (NEG <=50); COCAINE, URINE NEGATIVE (NEG <=150); METHAMPHETAMINES SCREEN,URINE NEGATIVE (NEG <=500); OPIATE, URINE POSITIVE (NEG <=100); PHENCYCLIDINE SCREEN,URINE NEGATIVE (NEG <=25); UR TRICYCLIC ANTIDEPRESSANTS NEGATIVE (NEG <=300); URINE AMPHETAMINE NEGATIVE (NEG <=500); URINE METHADONE NEGATIVE (NEG <=200); URINE OXYCODONE SCREEN NEGATIVE (NEG <=100); URINE PROPOXYPHENE SCREEN NEGATIVE (NEG <=300)
[2018-09-30] MEDS: NACL 0.9% 1,000 ML IV SCH (19:22)
[2018-09-30 20:00] VITALS: BP_SYST 114
[2018-09-30] MEDS ORDERED: ACETAMINOPHEN 325 MG TABLET PO PRN (21:30)
[2018-09-30] MEDS ORDERED: ONDANSETRON HCL 4 MG/2 ML VIAL IVP PRN (21:30)
[2018-09-30] MEDS: MEMANTINE HCL 5 MG TABLET PO SCH (22:24)
[2018-10-01 00:42] VITALS: BP_SYST 140
[2018-10-01] MEDS: NACL 0.9% 1,000 ML IV SCH ×2 (06:07→21:29)
[2018-10-01] MEDS: INSULIN Lispro 100 UNITS/ML VIAL (humaLOG) SUBCUT PRN ×3 (06:18→17:30)
[2018-10-01] MEDS ORDERED: INSULIN Lispro 100 UNITS/ML VIAL (humaLOG) SUBCUT ONE (07:00)
[2018-10-01 07:33] VITALS: BP_SYST 146
[2018-10-01 08:22] LABS: ALANINE AMINOTRANSFERASE 20 U/L (12-78); ALBUMIN 3.2 g/dL (3.4-4.8); ANION GAP 17 (5-15); ASPARTATE AMINOTRANSFERASE 40 U/L (10-37); CALCIUM 9.1 mg/dL (8.4-11.0); CHLORIDE 100 mmol/L (98-107); CREATININE 1.26 mg/dL (0.55-1.30); POTASSIUM 5.7 mmol/L (3.5-5.1); SODIUM SERUM 136 mmol/L (136-145); TOTAL BILIRUBIN 0.9 mg/dL (0.0-1.0); UREA NITROGEN, BLOOD 21 mg/dL (8-21)
[2018-10-01] MEDS: ASPIRIN 81 MG TAB.CHEW PO SCH (08:25)
[2018-10-01] MEDS: MEMANTINE HCL 5 MG TABLET PO SCH ×2 (08:26→20:55)
[2018-10-01] MEDS: ATENOLOL 25 MG TABLET(TENORMIN) PO SCH (08:27)
[2018-10-01] MEDS ORDERED: NITROGLYCERIN LINGUAL 400 mCg/SPRAY TL PRN (08:30)
[2018-10-01 08:32] LABS: GLUCOSE 506 mg/dL (70-99)
[2018-10-01] MEDS ORDERED: SODIUM POLYSTYRENE SULFONATE 15 GM/60 ML UDBTL PO ONE (08:45)
[2018-10-01] MEDS ORDERED: COMMUNICATION ORDER XX ONE (08:45)
[2018-10-01] MEDS ORDERED: ENOXAPARIN SODIUM 40 MG/0.4 ML SYRINGE SUBCUT SCH (09:00)
[2018-10-01 09:07] LABS: RED BLOOD CELL COUNT(AUTO) 4.35 MIL/uL (4.2-6.2); WHITE BLOOD COUNT (AUTO) 13.1 K/uL (4.8-10.8)
[2018-10-01 09:15] LABS: HEMOGLOBIN 13.8 g/dL (14.0-18.0)
[2018-10-01 09:16] LABS: BASOPHILS % (AUTO) 0.3 % (0.0-2.0); HEMATOCRIT 42.3 % (36-54); LYMPHOCYTES % (AUTO) 7.3 % (20.5-51.5); MEAN CORPUSCULAR HEMOGLOBIN 32 pg (27-31); MEAN CORPUSCULAR HGB CONC 33 % (32-36); MEAN CORPUSCULAR VOLUME 97 fL (79.0-98.0); NEUTROPHILS # (AUTO) 11.6 K/uL (1.8-7.7); PLATELET COUNT (AUTO) 204 K/uL (130-430); RED CELL DISTRIBUTION WIDTH 13.8 % (9.0-15.0)
[2018-10-01 09:17] LABS: MONOCYTES # (AUTO) 0.5 K/uL (0.0-1.0)
[2018-10-01] MEDS: NITROGLYCERIN 0.2 MG/HR PATCH.TD24 TD SCH (09:51)
[2018-10-01] MEDS ORDERED: *HEPARIN PER PHARMACY XX ONE (10:45)
[2018-10-01] MEDS ORDERED: ATORVASTATIN 20 MG TABLET PO ONE (11:00)
[2018-10-01] MEDS ORDERED: HEPARIN 25,000 UNITS/D5W 250ML 250 ML IV PRN (11:00)
[2018-10-01] MEDS: INSULIN REGULAR, HUMAN 100 UNITS/ML, 10 ML VIAL SQ SCH ×2 (11:30→17:29)
[2018-10-01] MEDS ORDERED: HEPARIN SODIUM,PORCINE 3000 UNITS/0.6 ML BOLUS IVP PRN (11:45)
[2018-10-01] MEDS ORDERED: HEPARIN SODIUM,PORCINE 2000 UNITS/0.4 ML BOLUS IVP PRN (11:45)
[2018-10-01] MEDS: HEPARIN 25,000 UNITS in 250 ML PREMIX IV PRN ×2 (12:14→14:19)
[2018-10-01 12:21] VITALS: BP_SYST 110
[2018-10-01 13:03] LABS: NEUTROPHILS % (AUTO) 88.4 % (40.0-70.0)
[2018-10-01 16:34] VITALS: BP_SYST 114
[2018-10-01 20:00] VITALS: BP_SYST 120
[2018-10-01] MEDS: DONEPEZIL HCL 5 MG TABLET (ARICEPT) PO SCH (20:54)
[2018-10-01] MEDS ORDERED: INSULIN GLARGINE 100 UNITS/ML 10 ML VIAL SQ SCH (21:00)
[2018-10-01] MEDS ORDERED: SIMVASTATIN 10 MG TABLET PO SCH (21:00)
[2018-10-02 00:13] VITALS: BP_SYST 143
[2018-10-02] MEDS: INSULIN Lispro 100 UNITS/ML VIAL (humaLOG) SUBCUT PRN ×3 (06:37→21:24)
[2018-10-02 07:27] LABS: ALANINE AMINOTRANSFERASE 19 U/L (12-78); ALBUMIN 2.5 g/dL (3.4-4.8); ANION GAP 5 (5-15); ASPARTATE AMINOTRANSFERASE 38 U/L (10-37); CALCIUM 8.8 mg/dL (8.4-11.0); CHLORIDE 104 mmol/L (98-107); CREATININE 1.02 mg/dL (0.55-1.30); GLUCOSE 329 mg/dL (70-99); POTASSIUM 3.9 mmol/L (3.5-5.1); SODIUM SERUM 135 mmol/L (136-145); TOTAL BILIRUBIN 0.6 mg/dL (0.0-1.0); UREA NITROGEN, BLOOD 20 mg/dL (8-21)
[2018-10-02 07:50] LABS: HEMOGLOBIN 11.9 g/dL (14.0-18.0); WHITE BLOOD COUNT (AUTO) 10.7 K/uL (4.8-10.8)
[2018-10-02 07:51] LABS: BASOPHILS % (AUTO) 0.6 % (0.0-2.0); EOSINOPHILS # (AUTO) 0.2 K/uL (0.0-0.4); EOSINOPHILS % (AUTO) 1.7 % (0.0-4.0); HEMATOCRIT 35.5 % (36-54); LYMPHOCYTES # (AUTO) 1.9 K/uL (1.0-5.5); LYMPHOCYTES % (AUTO) 17.8 % (20.5-51.5); MEAN CORPUSCULAR HEMOGLOBIN 32 pg (27-31); MEAN CORPUSCULAR HGB CONC 34 % (32-36); MEAN CORPUSCULAR VOLUME 96 fL (79.0-98.0); MONOCYTES # (AUTO) 0.9 K/uL (0.0-1.0); MONOCYTES % (AUTO) 8.4 % (1.7-9.3); NEUTROPHILS # (AUTO) 7.7 K/uL (1.8-7.7); NEUTROPHILS % (AUTO) 71.5 % (40.0-70.0); PLATELET COUNT (AUTO) 145 K/uL (130-430); RED CELL DISTRIBUTION WIDTH 13.5 % (9.0-15.0)
[2018-10-02 07:52] LABS: BASOPHILS # (AUTO) 0.1 K/uL (0.0-0.2)
[2018-10-02] MEDS: INSULIN REGULAR, HUMAN 100 UNITS/ML, 10 ML VIAL SQ SCH ×2 (08:04→11:28)
[2018-10-02] MEDS: ATORVASTATIN 20 MG TABLET PO SCH (08:07)
[2018-10-02] MEDS: NITROGLYCERIN 0.2 MG/HR PATCH.TD24 TD SCH (08:07)
[2018-10-02] MEDS: ASPIRIN 81 MG TAB.CHEW PO SCH (08:08)
[2018-10-02] MEDS: MEMANTINE HCL 5 MG TABLET PO SCH ×2 (08:08→21:27)
[2018-10-02] MEDS: ATENOLOL 25 MG TABLET(TENORMIN) PO SCH (08:08)
[2018-10-02 08:21] VITALS: BP_SYST 149
[2018-10-02] MEDS: NACL 0.9% 1,000 ML IV SCH (11:29)
[2018-10-02 12:31] VITALS: BP_SYST 116
[2018-10-02] MEDS ORDERED: LORazepam 2 MG/ML VIAL IVP ONE (14:45)
[2018-10-02 16:38] VITALS: BP_SYST 146
[2018-10-02] MEDS: HEPARIN 25,000 UNITS in 250 ML PREMIX IV PRN (17:30)
[2018-10-02] MEDS ORDERED: DEXTROSE 50% JECT 50 ML DISP.SYRIN IVP ONE (17:45)
[2018-10-02] MEDS ORDERED: DEXTROSE 50% JECT 50 ML DISP.SYRIN ONE (17:50)
[2018-10-02] MEDS ORDERED: INSULIN REGULAR, HUMAN 100 UNITS/ML, 10 ML VIAL SQ SCH (18:00)
[2018-10-02 20:00] VITALS: BP_SYST 147
[2018-10-02] MEDS: INSULIN GLARGINE 100 UNITS/ML 10 ML VIAL SQ SCH (21:25)
[2018-10-02] MEDS: DONEPEZIL HCL 5 MG TABLET (ARICEPT) PO SCH (21:27)
[2018-10-02 23:12] VITALS: BP_SYST 141
[2018-10-03] MEDS: NACL 0.9% 1,000 ML IV SCH ×3 (01:19→20:11)
[2018-10-03] MEDS: INSULIN Lispro 100 UNITS/ML VIAL (humaLOG) SUBCUT PRN ×3 (06:26→20:17)
[2018-10-03 07:45] LABS: ANION GAP 9 (5-15); CALCIUM 8.3 mg/dL (8.4-11.0); CHLORIDE 107 mmol/L (98-107); CREATININE 0.86 mg/dL (0.55-1.30); GLUCOSE 172 mg/dL (70-99); POTASSIUM 3.2 mmol/L (3.5-5.1); SODIUM SERUM 142 mmol/L (136-145); UREA NITROGEN, BLOOD 13 mg/dL (8-21)
[2018-10-03 07:56] LABS: ALANINE AMINOTRANSFERASE 20 U/L (12-78); ALBUMIN 2.5 g/dL (3.4-4.8); ASPARTATE AMINOTRANSFERASE 22 U/L (10-37); TOTAL BILIRUBIN 0.4 mg/dL (0.0-1.0)
[2018-10-03] MEDS ORDERED: POTASSIUM CHLORIDE 20 MEQ TAB.PRT.SR PO ONE (08:00)
[2018-10-03 08:05] VITALS: BP_SYST 181
[2018-10-03] MEDS: INSULIN REGULAR, HUMAN 100 UNITS/ML, 10 ML VIAL SQ SCH ×3 (08:15→17:21)
[2018-10-03] MEDS: HEPARIN 25,000 UNITS in 250 ML PREMIX IV PRN ×3 (08:17→23:29)
[2018-10-03] MEDS: NITROGLYCERIN 0.2 MG/HR PATCH.TD24 TD SCH (08:19)
[2018-10-03] MEDS: MEMANTINE HCL 5 MG TABLET PO SCH ×2 (08:19→20:12)
[2018-10-03] MEDS: ATORVASTATIN 20 MG TABLET PO SCH (08:19)
[2018-10-03] MEDS: ASPIRIN 81 MG TAB.CHEW PO SCH (08:20)
[2018-10-03] MEDS: ATENOLOL 25 MG TABLET(TENORMIN) PO SCH (08:20)
[2018-10-03 08:43] LABS: HEMATOCRIT 33.8 % (36-54); HEMOGLOBIN 11.5 g/dL (14.0-18.0); RED BLOOD CELL COUNT(AUTO) 3.58 MIL/uL (4.2-6.2); WHITE BLOOD COUNT (AUTO) 7.7 K/uL (4.8-10.8)
[2018-10-03 08:44] LABS: BASOPHILS % (AUTO) 0.4 % (0.0-2.0); EOSINOPHILS # (AUTO) 0.3 K/uL (0.0-0.4); EOSINOPHILS % (AUTO) 3.4 % (0.0-4.0); LYMPHOCYTES # (AUTO) 2.1 K/uL (1.0-5.5); LYMPHOCYTES % (AUTO) 27.2 % (20.5-51.5); MEAN CORPUSCULAR HEMOGLOBIN 32 pg (27-31); MEAN CORPUSCULAR HGB CONC 34 % (32-36); MEAN CORPUSCULAR VOLUME 95 fL (79.0-98.0); MONOCYTES # (AUTO) 0.8 K/uL (0.0-1.0); MONOCYTES % (AUTO) 10.2 % (1.7-9.3); NEUTROPHILS # (AUTO) 4.5 K/uL (1.8-7.7); NEUTROPHILS % (AUTO) 58.8 % (40.0-70.0); PLATELET COUNT (AUTO) 144 K/uL (130-430); RED CELL DISTRIBUTION WIDTH 13.3 % (9.0-15.0)
[2018-10-03 12:10] VITALS: BP_SYST 145
[2018-10-03 20:00] VITALS: BP_SYST 152
[2018-10-03] MEDS: DONEPEZIL HCL 5 MG TABLET (ARICEPT) PO SCH (20:12)
[2018-10-03] MEDS: INSULIN GLARGINE 100 UNITS/ML 10 ML VIAL SQ SCH (20:16)
[2018-10-04 00:56] VITALS: BP_SYST 170
[2018-10-04] MEDS: INSULIN Lispro 100 UNITS/ML VIAL (humaLOG) SUBCUT PRN ×3 (06:00→16:37)
[2018-10-04 06:53] LABS: ANION GAP 9 (5-15); CALCIUM 8.8 mg/dL (8.4-11.0); CHLORIDE 108 mmol/L (98-107); CREATININE 0.88 mg/dL (0.55-1.30); GLUCOSE 160 mg/dL (70-99); POTASSIUM 3.9 mmol/L (3.5-5.1); SODIUM SERUM 145 mmol/L (136-145); UREA NITROGEN, BLOOD 9 mg/dL (8-21)
[2018-10-04 07:07] LABS: ALANINE AMINOTRANSFERASE 21 U/L (12-78); ALBUMIN 2.6 g/dL (3.4-4.8); ASPARTATE AMINOTRANSFERASE 19 U/L (10-37); TOTAL BILIRUBIN 0.4 mg/dL (0.0-1.0)
[2018-10-04] MEDS: INSULIN REGULAR, HUMAN 100 UNITS/ML, 10 ML VIAL SQ SCH ×2 (08:00→12:11)
[2018-10-04 08:08] VITALS: BP_SYST 153
[2018-10-04] MEDS: NITROGLYCERIN 0.2 MG/HR PATCH.TD24 TD SCH (08:12)
[2018-10-04 08:57] LABS: BASOPHILS % (AUTO) 0.6 % (0.0-2.0); EOSINOPHILS # (AUTO) 0.5 K/uL (0.0-0.4); EOSINOPHILS % (AUTO) 6.3 % (0.0-4.0); HEMOGLOBIN 12.9 g/dL (14.0-18.0); LYMPHOCYTES % (AUTO) 27.9 % (20.5-51.5); MEAN CORPUSCULAR HEMOGLOBIN 31 pg (27-31); MEAN CORPUSCULAR HGB CONC 33 % (32-36); MEAN CORPUSCULAR VOLUME 95 fL (79.0-98.0); MONOCYTES # (AUTO) 0.7 K/uL (0.0-1.0); MONOCYTES % (AUTO) 9.2 % (1.7-9.3); NEUTROPHILS # (AUTO) 4.1 K/uL (1.8-7.7); PLATELET COUNT (AUTO) 158 K/uL (130-430); RED BLOOD CELL COUNT(AUTO) 4.13 MIL/uL (4.2-6.2); RED CELL DISTRIBUTION WIDTH 13.5 % (9.0-15.0); WHITE BLOOD COUNT (AUTO) 7.3 K/uL (4.8-10.8)
[2018-10-04] MEDS: MEMANTINE HCL 5 MG TABLET PO SCH (09:00)
[2018-10-04] MEDS: ASPIRIN 81 MG TAB.CHEW PO SCH (09:00)
[2018-10-04] MEDS: ATORVASTATIN 20 MG TABLET PO SCH (09:00)
[2018-10-04] MEDS: ATENOLOL 25 MG TABLET(TENORMIN) PO SCH (09:00)
[2018-10-04] MEDS: HEPARIN 25,000 UNITS in 250 ML PREMIX IV PRN (09:04)
[2018-10-04] MEDS ORDERED: REGADENOSON 0.4 MG/5 ML SYRINGE IVP ONE (11:00)
[2018-10-04 17:08] VITALS: BP_SYST 157
== END 2018-10-04 17:40 | disposition home or self-care (01) | DRG 315 ==
LOC: EDBD → SED 14:10 → MERGE 16:26 → STU 16:26
PROVIDERS: ADMIT Internal Medicine; ATTEND Internal Medicine
DX: I95.9 Hypotension, unspecified (principal); I24.9 Acute ischemic heart disease, unspecified; E44.0 Moderate protein-calorie malnutrition; E11.65 Type 2 diabetes mellitus with hyperglycemia; E78.5 Hyperlipidemia, unspecified; E86.0 Dehydration; I35.0 Nonrheumatic aortic (valve) stenosis; I50.9 Heart failure, unspecified; G30.9 Alzheimer's disease, unspecified; F02.80 Dementia in other diseases classified elsewhere, unspecified severity, without behavioral disturbance, psychotic disturbance, mood disturbance, and anxiety; I11.0 Hypertensive heart disease with heart failure; Z79.4 Long term (current) use of insulin; Z79.899 Other long term (current) drug therapy
CPT/HCPCS: 36415; 70450-TC; 70551; 71045; 80053; 80307; 81003; 82150-TC; 82550-TC; 82962; 83605; 83690-TC; 83880; 84484; 85025; 85379; 85610-TC; 85730-TC; 87040-TC; 93005; 93017; 93306; 93880; 96372; 96374; 96375; 97110-GP; 97530-GP; 99285; A9500; G0378; G0482; J1200; J1644; J1650; J1815; J2405; J2785; J7030

== ENCOUNTER 2018-10-11 20:23 | Emergency (ER) | payer BC ==
[~2018-10-11] VITALS: Ht 175.3 cm; Wt 72.6 kg
[~2018-10-11 20:23] MED LIST changes: +ASPI-1077 PO; +INSU100V7 SQ; +INSU100V9 SQ
[2018-10-11 20:29] VITALS: BP_SYST 132
[2018-10-11 23:11] VITALS: BP_SYST 132
== END 2018-10-11 23:09 | disposition home or self-care (01) ==
LOC: SED 20:23
DX: E11.649 Type 2 diabetes mellitus with hypoglycemia without coma (principal); F03.90 Unspecified dementia, unspecified severity, without behavioral disturbance, psychotic disturbance, mood disturbance, and anxiety; I10 Essential (primary) hypertension; Z79.82 Long term (current) use of aspirin; Z79.4 Long term (current) use of insulin; Z79.899 Other long term (current) drug therapy
CPT/HCPCS: 82962; 99282

== ENCOUNTER 2019-02-06 22:16 | Inpatient (IN) | payer BC ==
[~2019-02-06] VITALS: Ht 175.3 cm; Wt 65.4 kg
[2019-02-06 22:29] VITALS: BP_SYST 131
[2019-02-06 23:20] LABS: LYMPHOCYTES % (AUTO) 9.2 % (20.5-51.5); MEAN CORPUSCULAR HEMOGLOBIN 32 pg (27-31); MEAN CORPUSCULAR VOLUME 95 fL (79.0-98.0); MONOCYTES # (AUTO) 0.8 K/uL (0.0-1.0)
[2019-02-06 23:27] LABS: BASOPHILS # (AUTO) 0.1 K/uL (0.0-0.2); BASOPHILS % (AUTO) 0.9 % (0.0-2.0); EOSINOPHILS # (AUTO) 0.4 K/uL (0.0-0.4); EOSINOPHILS % (AUTO) 3.3 % (0.0-4.0); HEMATOCRIT 42.9 % (36-54); HEMOGLOBIN 14.5 g/dL (14.0-18.0); MEAN CORPUSCULAR HGB CONC 34 % (32-36); MONOCYTES % (AUTO) 6.9 % (1.7-9.3); NEUTROPHILS # (AUTO) 8.7 K/uL (1.8-7.7); NEUTROPHILS % (AUTO) 79.7 % (40.0-70.0); PLATELET COUNT (AUTO) 165 K/uL (130-430); RED BLOOD CELL COUNT(AUTO) 4.54 MIL/uL (4.2-6.2); RED CELL DISTRIBUTION WIDTH 13.7 % (9.0-15.0)
[2019-02-06 23:29] LABS: ANION GAP 9 (5-15); CHLORIDE 107 mmol/L (98-107); CREATININE 0.93 mg/dL (0.55-1.30); GLUCOSE 91 mg/dL (70-99); POTASSIUM 3.3 mmol/L (3.5-5.1); SODIUM SERUM 142 mmol/L (136-145); UREA NITROGEN, BLOOD 13 mg/dL (8-21)
[2019-02-06 23:35] LABS: ALANINE AMINOTRANSFERASE 20 U/L (12-78); ASPARTATE AMINOTRANSFERASE 13 U/L (10-37); TOTAL BILIRUBIN 0.4 mg/dL (0.0-1.0)
[2019-02-07] MEDS ORDERED: cloNIDine HCL 0.1 MG TABLET PO ONE ×2 (03:30→04:30)
[2019-02-07] MEDS ORDERED: cloNIDine HCL 0.1 MG TABLET ONE (04:28)
[2019-02-07 05:46] VITALS: BP_SYST 138
[2019-02-07] MEDS ORDERED: GLUCOSE 15 GM GEL (in 37.5 GM TUBE) PO PRN (07:45)
[2019-02-07] MEDS ORDERED: DEXTROSE 50% JECT 50 ML DISP.SYRIN IVP PRN (07:45)
[2019-02-07] MEDS ORDERED: D5W 1,000 ML IV PRN (07:45)
[2019-02-07 08:16] VITALS: BP_SYST 128
[2019-02-07] MEDS: cloNIDine HCL 0.1 MG TABLET PO SCH ×2 (08:44→15:00)
[2019-02-07] MEDS ORDERED: CHOLECALCIFEROL (VITAMIN D3) 2,000 UNIT TABLET PO SCH (09:00)
[2019-02-07] MEDS ORDERED: POTASSIUM CHLORIDE 10 MEQ TAB.PRT.SR PO ONE (09:00)
[2019-02-07] MEDS ORDERED: MEMANTINE HCL 5 MG TABLET PO SCH (09:00)
[2019-02-07] MEDS ORDERED: HYDROCHLOROTHIAZIDE 25 MG TABLET (HCTZ) PO SCH (09:00)
[2019-02-07] MEDS ORDERED: ASPIRIN 81 MG TAB.CHEW PO SCH (09:00)
[2019-02-07] MEDS ORDERED: ATENOLOL 25 MG TABLET(TENORMIN) PO SCH ×2 (09:00)
[2019-02-07 11:05] VITALS: BP_SYST 97
[2019-02-07] MEDS: INSULIN REGULAR, HUMAN 100 UNITS/ML, 10 ML VIAL (humuLIN R) SUBCUT PRN ×2 (11:12→17:37)
[2019-02-07 11:44] VITALS: BP_SYST 84
[2019-02-07] MEDS ORDERED: NACL 0.9% 1,000 ML IV ONE (16:45)
[2019-02-07 17:41] VITALS: BP_SYST 92
[2019-02-07 19:38] VITALS: BP_SYST 139
[2019-02-07] MEDS ORDERED: ATORVASTATIN 10 MG TABLET PO SCH (21:00)
[2019-02-07] MEDS ORDERED: DONEPEZIL HCL 5 MG TABLET (ARICEPT) PO SCH (21:00)
== END 2019-02-07 20:30 | DRG 639 ==
LOC: SED 22:16 → STU 02-07 05:04 → SMU 02-07 09:36
PROVIDERS: ADMIT Internal Medicine Hospice and Palliative Medicine; ATTEND Internal Medicine Hospice and Palliative Medicine
DX: E11.649 Type 2 diabetes mellitus with hypoglycemia without coma (principal); G30.9 Alzheimer's disease, unspecified; F02.80 Dementia in other diseases classified elsewhere, unspecified severity, without behavioral disturbance, psychotic disturbance, mood disturbance, and anxiety; I10 Essential (primary) hypertension; Z79.2 Long term (current) use of antibiotics; Z79.82 Long term (current) use of aspirin; Z79.4 Long term (current) use of insulin; Z79.899 Other long term (current) drug therapy
CPT/HCPCS: 36415; 71045; 80053; 82962; 84484; 85025; 93005; 99285; J7030

== ENCOUNTER 2021-03-24 13:03 | Emergency (ER) | payer BC ==
[~2021-03-24] VITALS: Ht 167.6 cm; Wt 72.6 kg
[~2021-03-24 13:03] MED LIST changes: -ASPI-1155 PO; -INSU100V7 SQ; -LEVO250T2 PO; -NPH,100V SUBCUT; -OSEL75CA PO
--- NOTE | 2021-03-24 13:06 | NUR ---
Patient to ER bed 02 to gown for evaluation. Side rails up.
[2021-03-24 13:07] VITALS: BP_SYST 111
--- NOTE | 2021-03-24 13:10 | NUR ---
PT ANDREI FROM HOME, PT ROLLED OUT OF BED AND WAS FOUND LAYING ON THE FLOOR BY , ABRASION TO HEAD AND BOTH HANDS UPON ARRIVAL, NO ACTIVE BLEEDING. PT DENIES KO AND STATES HE WAS AWAKE WHEN SHE FOUND HIM. PT HAS A HX OF DEMENTIA, AAOX2-3. V/S STABLE
--- NOTE | 2021-03-24 13:34 | NUR ---
ER at bedside examining patient.
--- NOTE | 2021-03-24 13:36 | NUR ---
Spoke with patient's Soledad Conley who states she will arrive to hospital around 1500 pm, notified.
[2021-03-24] MEDS ORDERED: DIPH-TET-PERTUS Vaccine 0.5 ML VIAL (ADACEL) I.M. ONE (13:45)
--- NOTE | 2021-03-24 13:55 | NUR ---
Patient transported to radiology via WC, accompanied by STAFF.
--- NOTE | 2021-03-24 14:20 | NUR ---
LAB AT THE BEDSIDE FOR BLOOD DRAW
[2021-03-24 14:39] LABS: BASOPHILS % (AUTO) 0.5 % (0.0-2.0); EOSINOPHILS # (AUTO) 0.3 K/uL (0.0-0.4); EOSINOPHILS % (AUTO) 2.9 % (0.0-4.0); HEMATOCRIT 39.3 % (36-54); HEMOGLOBIN 13.6 g/dL (14.0-18.0); LYMPHOCYTES # (AUTO) 1.4 K/uL (1.0-5.5); LYMPHOCYTES % (AUTO) 14.8 % (20.5-51.5); MEAN CORPUSCULAR HEMOGLOBIN 32 pg (27-31); MEAN CORPUSCULAR HGB CONC 35 % (32-36); MEAN CORPUSCULAR VOLUME 94 fL (79.0-98.0); MONOCYTES # (AUTO) 0.9 K/uL (0.0-1.0); MONOCYTES % (AUTO) 9.4 % (1.7-9.3); NEUTROPHILS # (AUTO) 6.7 K/uL (1.8-7.7); NEUTROPHILS % (AUTO) 72.4 % (40.0-70.0); PLATELET COUNT (AUTO) 212 K/uL (130-430); RED BLOOD CELL COUNT(AUTO) 4.19 MIL/uL (4.2-6.2); WHITE BLOOD COUNT (AUTO) 9.3 K/uL (4.8-10.8)
[2021-03-24 14:47] LABS: ANION GAP 6 (5-15); CALCIUM 8.4 mg/dL (8.4-11.0); CHLORIDE 108 mmol/L (98-107); CREATININE 0.85 mg/dL (0.55-1.30); GLUCOSE 115 mg/dL (70-99); POTASSIUM 3.8 mmol/L (3.5-5.1); SODIUM SERUM 141 mmol/L (136-145); UREA NITROGEN, BLOOD 17 mg/dL (8-21)
[2021-03-24 14:50] LABS: ALANINE AMINOTRANSFERASE 18 U/L (12-78); ALBUMIN 2.8 g/dL (3.4-4.8); ASPARTATE AMINOTRANSFERASE 14 U/L (10-37); TOTAL BILIRUBIN 0.4 mg/dL (0.0-1.0)
--- NOTE | 2021-03-24 15:00 | NUR ---
PT RESTING IN BED, NO S/SX OF DISTRSS, V/S STABLE
--- NOTE | 2021-03-24 15:34 | NUR ---
Patient given written and verbal discharge instructions and verbalizes understanding. ER MD discussed with patient the results and treatment provided. Patient in stable condition. ID arm band removed. NO Rx given. Patient educated on pain management and to follow up with PMD. Pain Scale 0/10. Opportunity for questions provided and answered. Medication side effect fact sheet provided.
[2021-03-24 16:00] VITALS: BP_SYST 113
== END 2021-03-24 15:34 | disposition home or self-care (01) ==
LOC: SED 13:03
DX: S00.83XA Contusion of other part of head, initial encounter (principal); I10 Essential (primary) hypertension; E11.9 Type 2 diabetes mellitus without complications; Z79.4 Long term (current) use of insulin; Z79.899 Other long term (current) drug therapy; W06.XXXA Fall from bed, initial encounter; Y93.89 Activity, other specified; Y92.89 Other specified places as the place of occurrence of the external cause; Y99.8 Other external cause status
CPT/HCPCS: 36415; 70450-TC; 72125-TC; 76376; 80053; 82962; 85025; 90715; 93005; 99285